=== PATIENT | female | born 1975 | race Hispanic/Latino ===

== ENCOUNTER 2019-10-27 13:13 | Emergency (ER) | payer SELFPAY ==
[2019-10-27] MEDS ORDERED: ALBUTEROL 2.5 MG/3 ML NEB SOL ONE ×2 (13:30→14:25)
[2019-10-27] MEDS ORDERED: predniSONE 20 MG TAB ONE (13:30)
[2019-10-27] MEDS ORDERED: IPRATROPIUM BROM 0.5MG/2.5ML ONE (13:30)
[2019-10-27] MEDS ORDERED: MAGNESIUM SULFATE 1 gm IVPB 1 GM/100 ML BAG IV ONE (14:25)
--- NOTE | 2019-10-27 15:22 | ER ---
Nurse's Notes [facility] Name: Carissa Cuevas Age: 44 yrs Sex: Female : 1975 Arrival Date: 10/27/2019 Time: 13:17 Bed 4 Private MD: Diagnosis: Unspecified asthma with (acute) exacerbation Presentation: 10/27 13:17 Presenting complaint: Patient states: asthma exacerbation started a couple of days ago. sv Transition of care: patient was not received from another setting of care. Onset of symptoms was October 2019. Care prior to arrival: None. 13:17 Method Of Arrival: Ambulatory sv 13:17 Acuity: JIMI 3 sv 13:31 Initial Sepsis Screen: Does the patient meet any 2 criteria? RR > 20 per min. Does the aa5 patient have a suspected source of infection? Yes: Productive cough/pneumonia. 13:31 Risk Assessment: Do you want to hurt yourself or someone else? Patient reports no aa5 desire to harm self or others. Triage Assessment: 13:20 General: Appears in no apparent distress. comfortable, obese, Behavior is cooperative, bp appropriate for age, anxious. Pain: Denies pain. EENT: No deficits noted. Neuro: No deficits noted. Cardiovascular: No deficits noted. Respiratory: Airway is patent Respiratory effort is even, unlabored, Breath sounds with wheezes bilaterally. GI: No signs and/or symptoms were reported involving the gastrointestinal system. : No signs and/or symptoms were reported regarding the genitourinary system. Derm: No deficits noted. Musculoskeletal: No deficits noted. Historical: - Allergies: 13:18 No Known Allergies; sv - PMHx: 13:18 Asthma; sv - PSHx: 13:18 ; sv - Immunization history:: Adult Immunizations up to date. - Social history:: Smoking status: Patient/guardian denies using tobacco. - Ebola Screening: : No symptoms or risks identified at this time. Screenin:33 Abuse screen: Denies threats or abuse. Nutritional screening: No deficits noted. aa5 Tuberculosis screening: No symptoms or risk factors identified. Fall Risk None identified. Assessment: 13:20 General: SEE TRIAGE NOTE. bp 13:31 General: Appears uncomfortable, Behavior is calm, cooperative. Pain: Denies pain. aa5 Neuro: Level of Consciousness is awake, alert, obeys commands, Oriented to person, place, time, situation. Cardiovascular: Heart tones S1 S2 present Rhythm is regular. Respiratory: Reports shortness of breath at rest on exertion cough that is productive, Airway is patent Respiratory effort is even, unlabored, Respiratory pattern is tachypnea Breath sounds with wheezes bilaterally. GI: No signs and/or symptoms were reported involving the gastrointestinal system. : No signs and/or symptoms were reported regarding the genitourinary system. EENT: Reports nasal discharge that is green. Derm: Skin is pink, warm \T\ dry. Musculoskeletal: Range of motion: intact in all extremities. 14:36 Reassessment: NEB IN PROCESS, WHEEZING IMPROVED BUT STILL PRESENT. bp 15:00 Reassessment: Patient is alert, oriented x 3, equal unlabored respirations, skin aa5 warm/dry/pink. Patient states feeling better. Wheezing diminished bilaterally. 15:29 Reassessment: PT D/C HOME AMBULATORY, DX WITH ASTHMA EXACERBATION. bp Vital Signs: 13:18 BP 104 / 54; Pulse 78; Resp 28; Temp 98.0; Pulse Ox 100% ; Weight 96.62 kg; Height 4 sv ft. 10 in. (147.32 cm); 13:31 Pulse 76; Resp 24 S; Pulse Ox 96% on R/A; aa5 13:34 Pulse 78; Resp 24 S; Pulse Ox 100% on Nebulizer Mask; aa5 14:37 BP 98 / 68; Pulse 80; Resp 24; Pulse Ox 100% ; bp 15:29 BP 102 / 71; Pulse 83; Resp 18; Temp 98; Pulse Ox 98% ; bp 13:18 Body Mass Index 44.52 (96.62 kg, 147.32 cm) sv ED Course: 13:17 Patient arrived in ED. ag5 13:18 Triage completed. sv 13:18 Arm band placed on. sv 13:23 Meena Tinsley [facility]C [facility]. kb 13:23 Gwyn Her MD is Attending Physician. kb 13:26 Swetha Kimball, CARRIE is Primary Nurse. aa5 13:31 Patient has correct armband on for positive identification. Bed in low position. Call aa5 light in reach. Side rails up X 1. Pulse ox on. NIBP on. 14:35 Inserted saline lock: 22 gauge in right forearm, using aseptic technique. bp 15:30 No provider procedures requiring assistance completed. IV discontinued, intact, bp bleeding controlled, No redness/swelling at site. Pressure dressing applied. Administered Medications: 13:33 Drug: DuoNeb (3:1) (2.5 mg - 0.5 mg) 3 ml Route: Nebulizer; aa5 15:00 Follow up: Response: No adverse reaction aa5 13:33 Drug: predniSONE 60 mg Route: PO; aa5 15:00 Follow up: Response: No adverse reaction aa5 14:26 Drug: Albuterol 2.5 mg Route: Inhalation; bp 14:31 Drug: Albuterol 2.5 mg Route: Inhalation; aa5 14:35 Drug: Magnesium Sulfate 2 grams Route: IVPB; Infused Over: 2 hrs; Site: right forearm; bp 15:00 Follow up: Response: No adverse reaction; IV Status: Infusion continued aa5 14:36 Drug: Albuterol 2.5 mg Route: Inhalation; aa5 Outcome: 15:21 Discharge ordered by MD. kb 15:30 Discharged to home ambulatory. bp 15:30 Condition: stable 15:30 Discharge instructions given to patient, Instructed on discharge instructions, follow up and referral plans. medication usage, Demonstrated understanding of instructions, follow-up care, medications, Prescriptions given X 2. 15:31 Patient left the ED. bp Signatures: Meena Tinsley FNP-C MATERIAL ENGINEER-Cathy Celestin RN Swetha Ireland RN CARRIE garcia5 Hai Bronson RN Peter Walters 5 Corrections: (The following items were deleted from the chart) 13:19 13:18 Pulse 78bpm; Resp 28bpm; 96.62 kg; Height 4 ft. 10 in.; BMI: 44.5; sv sv 14:39 14:37 Pulse 80bpm; Resp 24bpm; Pulse Ox 100%; bp bp
--- NOTE | 2019-10-27 15:22 | EDPHYS ---
Physician Documentation [facility] Name: Carissa Cuevas Age: 44 yrs Sex: Female : 1975 Arrival Date: 10/27/2019 Time: 13:17 Bed 4 Private MD: ED Physician Gwyn Her HPI: 10/27 13:59 This 44 yrs old Female presents to ER via Ambulatory with complaints of Asthma kb Exacerbation. 13:59 The patient presents to the emergency department with wheezing, Current therapy: kb albuterol inhaler. Onset: The symptoms/episode began/occurred 2 day(s) ago. Modifying factors: The symptoms are alleviated by nothing, the symptoms are aggravated by nothing. Associated signs and symptoms: The patient has no apparent associated signs or symptoms. Severity of symptoms: At their worst the symptoms were moderate in the emergency department the symptoms are unchanged. The patient has experienced similar episodes in the past. The patient has not recently seen a physician. "My asthma has been acting up." Symptoms began 2 days ago. Pt is here from out of town and left her inhaler at home so she hasn't been using anything. Historical: - Allergies: 13:18 No Known Allergies; sv - PMHx: 13:18 Asthma; sv - PSHx: 13:18 ; sv - Immunization history:: Adult Immunizations up to date. - Social history:: Smoking status: Patient/guardian denies using tobacco. - Ebola Screening: : No symptoms or risks identified at this time. ROS: 13:58 Constitutional: Negative for fever, chills, and weight loss, ENT: Negative for injury, kb pain, and discharge, Neck: Negative for injury, pain, and swelling, Cardiovascular: Negative for chest pain, palpitations, and edema, Abdomen/GI: Negative for abdominal pain, nausea, vomiting, diarrhea, and constipation, Back: Negative for injury and pain, : Negative for injury, bleeding, discharge, and swelling, MS/Extremity: Negative for injury and deformity, Skin: Negative for injury, rash, and discoloration, Neuro: Negative for headache, weakness, numbness, tingling, and seizure. 13:58 Respiratory: Positive for cough, shortness of breath. Exam: 13:58 Constitutional: This is a well developed, well nourished patient who is awake, alert, kb and in no acute distress. Head/Face: Normocephalic, atraumatic. ENT: Nares patent. No nasal discharge, no septal abnormalities noted. Tympanic membranes are normal and external auditory canals are clear. Oropharynx with no redness, swelling, or masses, exudates, or evidence of obstruction, uvula midline. Mucous membranes moist. Neck: Trachea midline, no thyromegaly or masses palpated, and no cervical lymphadenopathy. Supple, full range of motion without nuchal rigidity, or vertebral point tenderness. No Meningismus. Chest/axilla: Normal chest wall appearance and motion. Nontender with no deformity. No lesions are appreciated. Cardiovascular: Regular rate and rhythm with a normal S1 and S2. No gallops, murmurs, or rubs. Normal PMI, no JVD. No pulse deficits. Abdomen/GI: Soft, non-tender, with normal bowel sounds. No distension or tympany. No guarding or rebound. No evidence of tenderness throughout. Skin: Warm, dry with normal turgor. Normal color with no rashes, no lesions, and no evidence of cellulitis. MS/ Extremity: Pulses equal, no cyanosis. Neurovascular intact. Full, normal range of motion. Neuro: Awake and alert, GCS 15, oriented to person, place, time, and situation. Cranial nerves II-XII grossly intact. Motor strength 5/5 in all extremities. Sensory grossly intact. Cerebellar exam normal. Normal gait. 13:58 Respiratory: the patient does not display signs of respiratory distress, Respirations: normal, Breath sounds: wheezing: inspiratory expiratory that is moderate, is heard diffusely. Vital Signs: 13:18 BP 104 / 54; Pulse 78; Resp 28; Temp 98.0; Pulse Ox 100% ; Weight 96.62 kg; Height 4 sv ft. 10 in. (147.32 cm); 13:31 Pulse 76; Resp 24 S; Pulse Ox 96% on R/A; aa5 13:34 Pulse 78; Resp 24 S; Pulse Ox 100% on Nebulizer Mask; aa5 14:37 BP 98 / 68; Pulse 80; Resp 24; Pulse Ox 100% ; bp 15:29 BP 102 / 71; Pulse 83; Resp 18; Temp 98; Pulse Ox 98% ; bp 13:18 Body Mass Index 44.52 (96.62 kg, 147.32 cm) sv MDM: 13:23 Patient medically screened. kb 13:58 Data reviewed: vital signs, nurses notes. Data interpreted: Pulse oximetry: on room air kb is 100 %. Interpretation: normal. 15:15 Counseling: I had a detailed discussion with the patient and/or guardian regarding: the kb historical points, exam findings, and any diagnostic results supporting the discharge/admit diagnosis, the need for outpatient follow up, a family practitioner, to return to the emergency department if symptoms worsen or persist or if there are any questions or concerns that arise at home. ED course: wheezing decreased. Pt is in no resp distress and is maintaining oxygen saturation level on room air. Will discharge with RX for inhaler and steroids. Pt will return if symptoms worsen. 10/27 14:23 Order name: IV Start; Complete Time: 14:34 kb Administered Medications: 13:33 Drug: DuoNeb (3:1) (2.5 mg - 0.5 mg) 3 ml Route: Nebulizer; aa5 15:00 Follow up: Response: No adverse reaction aa5 13:33 Drug: predniSONE 60 mg Route: PO; aa5 15:00 Follow up: Response: No adverse reaction aa5 14:26 Drug: Albuterol 2.5 mg Route: Inhalation; bp 14:31 Drug: Albuterol 2.5 mg Route: Inhalation; aa5 14:35 Drug: Magnesium Sulfate 2 grams Route: IVPB; Infused Over: 2 hrs; Site: right forearm; bp 15:00 Follow up: Response: No adverse reaction; IV Status: Infusion continued aa5 14:36 Drug: Albuterol 2.5 mg Route: Inhalation; aa5 Disposition: 10/27/19 15:21 Discharged to Home. Impression: Unspecified asthma with (acute) exacerbation. - Condition is Stable. - Discharge Instructions: Asthma, Adult, [id number]. - Prescriptions for Prednisone 20 mg Oral Tablet - take 1 tablet by ORAL route once daily for 5 days; 5 tablet. Albuterol Sulfate 90 mcg/actuation - inhale 1-2 puff by INHALATION route every 4-6 hours; 1 Inhaler. - Medication Reconciliation Form, Thank You Letter, Antibiotic Education, Prescription Opioid Use form. - Follow up: Emergency Department; When: As needed; Reason: Worsening of condition. Follow up: Private Physician; When: 2 - 3 days; Reason: Recheck today's complaints, Continuance of care, Re-evaluation by your physician. Addendum: 10/29/2019 10:14 Co-signature as Attending Physician, Gwyn Her MD I agree with the assessment and c santana plan of care. Signatures: Meena Tinsley, ARISTEO-C TUBE BUFFER-Cathy Celestin, RN Gwyn Cabrera MD MD cha Calderon, Audri, RN RN aa5 Hai Bronson RN RN bp Corrections: (The following items were deleted from the chart) 10/27 15:31 15:21 10/27/2019 15:21 Discharged to Home. Impression: Unspecified asthma with (acute) bp exacerbation. Condition is Stable. Forms are Medication Reconciliation Form, Thank You Letter, Antibiotic Education, Prescription Opioid Use. Follow up: Emergency Department; When: As needed; Reason: Worsening of condition. Follow up: Private Physician; When: 2 - 3 days; Reason: Recheck today's complaints, Continuance of care, Re-evaluation by your physician. kb
[2019-10-27 15:42] VITALS: BP 102/71; TEMP 98; O2SAT 98
== END 2019-10-27 15:31 | disposition home or self-care (01) ==
LOC: ER 13:13
DX: J45.901 Unspecified asthma with (acute) exacerbation (principal)
CPT/HCPCS: 94640; 96365; 99284; J3475; J7512